=== PATIENT | male | born 1975 | race Hispanic/Latino ===

== ENCOUNTER 2020-01-01 23:53 | Emergency (ER) | payer MEDICAID ==
[~2020-01-01] VITALS: Ht 177.8 cm; Wt 83.9 kg
--- NOTE | 2020-01-04 15:19 | EKG ---
[facility] [address] [facility] [place], [place] [address] Signed Normal sinus rhythm Incomplete right bundle branch block Borderline ECG No previous ECGs available Confirmed by NAVID GONZALEZ DO ([id number]) on 01/04/2020 10:52:56 AM Electronically Signed By: NAVID GONZALEZ DO 01/04/20 1519 PATIENT NAME: SEAN BLACKMON Electrocardiogram DATE OF : 75 PHYSICIAN: NAVID GONZALEZ DO REPORT #: [id number] REPORT IS CONFIDENTIAL AND NOT TO BE RELEASED WITHOUT AUTHORIZATION
== END 2020-01-02 01:10 | disposition home or self-care (01) ==
LOC: ED 23:53
DX: R06.00 Dyspnea, unspecified (principal); F17.200 Nicotine dependence, unspecified, uncomplicated
CPT/HCPCS: 71046; 90471; 90715; 93005; 93010; 99285-25